=== PATIENT | female | born 1985 | race Caucasian/White ===

== ENCOUNTER 2017-03-14 02:16 | Inpatient (IN) | payer OTHER ==
[2017-03-14] MEDS ORDERED: TERBUTALINE SULFATE 1 MG/ML VIAL IV PRN (02:34)
[2017-03-14] MEDS ORDERED: LR 1,000 ML IV PRN (02:34)
[2017-03-14] MEDS ORDERED: OLIVE OIL 118 ML BTL MISC PRN (02:34)
[2017-03-14] MEDS ORDERED: EPSOM SALT 454 GM TP PRN (02:34)
[2017-03-14] MEDS ORDERED: OXYTOCIN 20 UNIT in LR 1,000 ML IV PRN (02:34)
[2017-03-14] MEDS ORDERED: AMMONIA AROMATIC 1 EACH AMP IH ONE (02:42)
[2017-03-14] MEDS ORDERED: TERBUTALINE SULFATE 1 MG/ML VIAL ONE (02:42)
[2017-03-14] MEDS ORDERED: OLIVE OIL 118 ML BTL ONE (02:42)
[2017-03-14] MEDS ORDERED: LIDOCAINE 1% 300 MG/30 ML SDV ONE (02:42)
[2017-03-14] MEDS ORDERED: MISOPROSTOL 200 MCG TAB ONE (02:43)
[2017-03-14] MEDS ORDERED: OXYTOCIN 10 UNIT/ML VIAL ONE (02:43)
[2017-03-14 03:31] LABS: PLATELET COUNT 168 10^3/uL (150-400)
--- NOTE | 2017-03-14 04:03 | PDGENHP ---
History and Physical History and Physical: HPI: Patient is a 31yo G [id number] with IUP@ 40-1wks that presents to L&D with complaints of LOF, which is clear since 2244. She also reports regular contractions since 129. She states she is having contractions every 5-7 min x 1 -2 hours. She denies any VB. She reports +FM. She denies any headaches, visual changes, epigastric pain. EDC: 03/13/17 which is based on LMP:06/16/16 which is known and consistent with Ultrasound at 8 weeks. Her is complicated by: sciatica, migraines (no meds) Review of Systems: Constitutional: Denies any fever, chills, or fatigue HEENT: denies any visual changes, difficulty swallowing, hearing loss Cardiovascular: Denies any chest pain, palpitations, leg swelling Respiratory: denies any cough, wheezing, or shortness of breathe GI: Denies any nausea, vomiting, diarrhea, constipation : denies any dysuria, urgency, frequency, vaginal bleeding Musculoskeletal: denies any muscle or bone pain Skin: denies any rashes Neuro: denies any headache, seizures, lightheadedness, dizziness, or loss of consciousness Psychiatric: denies any depression, anxiety, or SI/HI thoughts HISTORY: Previous OB history: 2016 (8#6), SAB 2014 Past medical history: migraines Past surgical history: none Medications: PNV Allergies (list reaction): NKDA LABS: Rh: A+ ABS: Neg Rubella: Immune HbsAg: NR HIV: NR VDRL: NR 1hr: 74 GC: Neg Chlamydia: Neg Pap: Normal GBS: negative PHYSICAL EXAM: Constitutional: WN, A&Ox3 HEENT: normocephalic atraumatic, supple Heart: RRR, no murmur Chest: CTA-B Abdomen: Soft, nontender, gravid SVE: 6/80/-2 Extremities: no edema, negative homans sign Neuro: grossly normal Psych: normal affect assessment: Reassuring FHTs, baseline 140 +accels, no decels, moderate variability Contractions: toco q 3-5 Assessment: 1) 31yo with IUP@ 40-1wks 2) early vs active labor 3) GBS negative 4) Cat 1 FHR tracing 5) SROM- clear @ 2244 Plan: 1) Admit to L&D 2) expectant management 3) IA 4) pain management PRN 5) anticipate
--- NOTE | 2017-03-14 07:05 | OBPROG ---
Labor Progress Note Assessment/Plan: Assessment: [id number] with IUP@ 40-1wks Active labor GBS Negative Plan: continue expectant management pain management PRN anticipate 03/14/17 07:02 Subjective/Intrapartum Course: 03/14/17 07:04 pt is feeling pressure and has intermittent desire to push. She is coping well. Changing positions. FOB @ BS, supportive. Objective: 03/14/17 03:15 Patient ABO/Rh A POSITIVE 03/14/17 03:15 - SVE Dilation (cm): 8 Effacement (%): 75 Station: -1 Membranes: SROM Amniotic Fluid Color: Clear - Contraction Pattern Assessment Current Contraction Pattern: Regular - AP Antepartum Course: 03/14/17 07:04 routine care FOB- prolong QT wave- baby will get tested after Oxytocin Orders Assessment - Pre-Induction/Augmentation Assessment Gestational Age: 40 week(s) and 1 day(s) ICD10 Worksheet Patient Problems: Problems Problem Status Onset Normal labor Acute Spontaneous vaginal delivery Acute delivery of viable fetus Acute - ICD10 Problem Qualifiers (1) Normal labor
[2017-03-14] MEDS: IBUPROFEN 600 MG TAB PO PRN ×3 (08:47→20:49)
[2017-03-15] MEDS: IBUPROFEN 600 MG TAB PO PRN ×2 (02:38→12:01)
--- NOTE | 2017-03-15 10:50 | OBDEL ---
Info Type: Vaginal Presentation at Delivery: Vertex L&D Analgesia/Anesthesia Type: Local GBS+: No Intrapartum Medications: Generic Name Dose Route Start Last Admin Trade Name Freq PRN Reason Stop Dose Admin Ibuprofen 600 mg 03/14/17 02:34 03/15/17 02:38 Motrin PO 09/10/17 02:33 600 mg Q6HRS PRN Administration post , inflammation - Hospital Course Intrapartum: 03/14/17 07:04 pt is feeling pressure and has intermittent desire to push. She is coping well. Changing positions. FOB @ BS, supportive. Indications for Delivery: Spontaneous Labor, SROM Vaginal Delivery - Delivery Provider Delivery Physician/CNM: Gladys Quintana - Labor and Delivery Onset of Contractions Date: 03/13/17 Onset of Contractions Time: 23:15 Onset of Contractions Type: Spontaneous Rupture of Membranes Date: 03/13/17 Rupture of Membranes Time: 22:45 Rupture of Membranes Type: Spontaneous Amniotic Fluid Color: Clear Dilation Complete Date: 03/14/17 Dilation Complete Time: 07:50 Placenta Delivery Date: 03/14/17 Placenta Delivery Time: 08:09 Total Hours of Labor: 8 Laceration: 1st Degree Repair: 3-0 Vaginal Sponge Count Correct: Yes Vaginal Needle Count Correct: Yes Vaginal Sweep Performed: Yes EBL: 200 Delivery Events: None [place] Data HESHAM: 03/13/17 Gestational Age: 40 week(s) and 2 day(s) [place] Delivery Date: 03/14/17 Delivery Time: 08:01 Sex of : Male Score (1 Min): 8 Score (5 Min): 9 ICD10 Worksheet Patient Problems: Problems Problem Status Onset Normal labor Acute Spontaneous vaginal delivery Acute delivery of viable fetus Acute - ICD10 Problem Qualifiers (1) Normal labor
[2017-03-15 10:54] VITALS: BP 121/83; PULSE 96; RESP 20; TEMP 97.4; O2SAT 94
--- NOTE | 2017-03-15 13:25 | OBPP ---
Progress Note Assessment/Plan: Assessment:nipples intact. well pain well managed ff@u scant rubra lochia voiding without difficulty Plan:discharge to home with instructions discussed depression, pericare, pain management, continue pnv, walking, contraception, rest, pelvic rest, , fu 4 weeks and 6 weeks 03/15/17 13:23 Subjective/ Course: Denies difficulties. routine pericare. [place] for cramping relief 03/15/17 13:21 Patient doing well. States feeling cramping desires norco a few to take home. Doing ok with denies nipples pain. Scant rubra lochia. Objective: 03/14/17 03:15 Patient ABO/Rh A POSITIVE 03/14/17 03:15 Temp Pulse Resp BP Pulse Ox 36.3 C 96 20 121/83 H 94 03/15/17 08:00 03/15/17 08:00 03/15/17 08:00 03/15/17 08:00 03/15/17 08:00 Uterine Position/Fundal Height: At Umbilicus Uterine Tone: Firm Physical Exam - Physical Exam Abdomen: other (ff@u scant rubra lochia, perineum approximated) DTR- Lower Extremities: Knee (R): 1+, Knee (L): 1+ (no clonus) Skin: normal color, warm/dry Neuro/Psych: no motor/sensory deficits, alert, normal mood/affect, oriented x 3
[2017-03-15] MEDS ORDERED: HYDROCODONE/APAP 5/325 TAB PO PRN (13:27)
--- NOTE | 2017-03-15 13:31 | OBGCSDC ---
General Delivery Information - General Info : 3 Para: 2 Abortions: 1 Type: Vaginal L&D Analgesia/Anesthesia Type: Local Admission Date: 03/14/17 Labs: Patient ABO/Rh A POSITIVE 03/14/17 03:15 Hct 38.3 % (38.0-47.0) 03/14/17 03:15 - Hospital Course Antepartum: 03/14/17 07:04 routine care FOB- prolong QT wave- baby will get tested after Intrapartum: 03/14/17 07:04 pt is feeling pressure and has intermittent desire to push. She is coping well. Changing positions. FOB @ BS, supportive. : Denies difficulties. routine pericare. [place] for cramping relief 03/15/17 13:21 Patient doing well. States feeling cramping desires norco a few to take home. Doing ok with denies nipples pain. Scant rubra lochia. Vaginal - Delivery Provider Delivery Physician/CNM: Gladys Quintana - Diagnosis Labor: Spontaneous Rupture of Membranes Type: Spontaneous Amniotic Fluid Color: Clear Laceration: 1st Degree Repair: 3-0 Delivery Events: None - Delivery EBL: 200 [place] Data HESHAM: 03/13/17 Gestational Age: 40 week(s) and 2 day(s) [place] Delivery Date: 03/14/17 Delivery Time: 08:01 Sex of : Male Score (1 Min): 8 Score (5 Min): 9 Discharge Information - Discharge Information Prescriptions: Ibuprofen [Motrin (*)] 600 mg PO Q6HRS PRN #30 tab PRN Reason: post , inflammation Hydrocodone/APAP 5/325 [[place] 5/325 (*)] 1 tab PO Q6H PRN #10 tab PRN Reason: Pain, Moderate Able To Take Po Condition: Good
== END 2017-03-15 15:30 | disposition home or self-care (01) | DRG 775 ==
LOC: FLD 02:16 → OBSVTOIN 06:57 → FOB 11:30
PROVIDERS: ADMIT Advanced Practice Midwife; ATTEND Advanced Practice Midwife
PROC: 10E0XZZ Delivery of Products of Conception, External Approach (ICD-10-PCS; principal; 2017-03-14)
DX: O80 Encounter for full-term uncomplicated delivery (principal); Z3A.40 40 weeks gestation of pregnancy; Z37.0 Single live birth
CPT/HCPCS: J3105